=== PATIENT | male | born 1965 | race African-American/Black ===

== ENCOUNTER 2022-02-11 13:36 | Inpatient (IN) | payer OTHER ==
[~2022-02-11] VITALS: Ht 180.3 cm; Wt 90.7 kg
[~2022-02-11 13:36] MED LIST: BENZ2TAB27 PO; CLON2TAB PO; COL250 PO; DIVA500T1 PO; HAL5 PO; LOSA25TA32 PO; OLAN15TA1 PO; PROP20TA29 PO; TRAZ-343 PO
[2022-02-11 13:38] VITALS: BP 111/60
--- NOTE | 2022-02-11 14:39 | NUR ---
MOVED TO ER BED 9
[2022-02-11 15:11] LABS: BASOPHILS % (AUTO) 0.3 % (0.0-2.0); EOSINOPHILS % (AUTO) 0.4 % (0.0-4.0); HEMATOCRIT 38.1 % (36-52); HEMOGLOBIN 12.5 g/dL (12.0-18.0); LYMPHOCYTES % (AUTO) 18.7 % (20.5-51.1); MEAN CORPUSCULAR HEMOGLOBIN 29 pg (27-31); MEAN CORPUSCULAR HGB CONC 33 g/dL (33-37); MEAN CORPUSCULAR VOLUME 89.4 fL (80-94); MONOCYTES # (AUTO) 0.9 K/uL (0.8-1.0); MONOCYTES % (AUTO) 17.4 % (1.7-9.3); NEUTROPHILS # (AUTO) 3.3 K/uL (1.8-7.7); NEUTROPHILS % (AUTO) 63.2 % (42.2-75.2); PLATELET COUNT (AUTO) 100 K/uL (140-450); RED BLOOD CELL COUNT(AUTO) 4.26 MIL/uL (4.20-6.10); RED CELL DISTRIBUTION WIDTH 15.3 % (11.6-13.7); WHITE BLOOD COUNT (AUTO) 5.2 K/uL (4.8-10.8)
[2022-02-11 15:37] LABS: ALBUMIN 2.7 g/dL (3.4-5.0); ANION GAP 11.7 (8-16); ASPARTATE AMINOTRANSFERASE 34 U/L (15-37); CARBON DIOXIDE 33.4 mmol/L (21-32); CHLORIDE 103 mmol/L (98-107); CREATININE 2.2 mg/dL (0.6-1.3); GFR ARICAN-AMERICAN 40 mL/min (>90); GLUCOSE 128 mg/dL (74-106); POTASSIUM 4.1 mmol/L (3.5-5.1); SODIUM SERUM 144 mmol/L (136-145); TOTAL BILIRUBIN 0.3 mg/dL (0.0-1.0); UREA NITROGEN, BLOOD 26 mg/dL (7-18)
[2022-02-11 15:41] LABS: ACETAMINOPHEN < 0.5 ug/ml (10-30); SALICYLATE < 2.8 mg/dL (2.8-20.0)
[2022-02-11] MEDS ORDERED: NACL 0.9% 1,000 ML IV ONE (17:10)
[2022-02-11] MEDS ORDERED: ACETAMINOPHEN 325 MG TAB PO PRN (18:10)
[2022-02-11] MEDS ORDERED: ONDANSETRON 4 MG/2 ML VIAL IVP PRN (18:10)
[2022-02-11] MEDS ORDERED: HYDROcodone/APAP 5/325 MG 1 TAB TAB PO PRN (18:10)
--- NOTE | 2022-02-11 19:20 | NUR ---
Pt report given to ARPITA Brewer. Transfer of care at this time.
[2022-02-11] MEDS: NACL 0.9% 1,000 ML IV SCH (19:30)
--- NOTE | 2022-02-11 19:40 | NUR ---
Patient resting comfortably in bed, A/Ox4, chest rise and fall symmetrical, no c/o pain or s/s of distress.
--- NOTE | 2022-02-11 21:00 | NUR ---
Patient resting comfortably in bed, A/Ox4, chest rise and fall symmetrical, no c/o pain or s/s of distress.
--- NOTE | 2022-02-11 23:00 | NUR ---
Patient resting comfortably in bed, A/Ox4, chest rise and fall symmetrical, no c/o pain or s/s of distress.
--- NOTE | 2022-02-12 01:00 | NUR ---
Patient resting comfortably in bed, A/Ox4, chest rise and fall symmetrical, no c/o pain or s/s of distress.
--- NOTE | 2022-02-12 03:00 | NUR ---
Patient resting comfortably in bed, A/Ox4, chest rise and fall symmetrical, no c/o pain or s/s of distress.
[2022-02-12 03:57] LABS: APPEARANCE,URINE CLEAR (CLEAR); BILIRUBIN,URINE NEGATIVE (NEGATIVE); BLOOD, URINE NEGATIVE (NEGATIVE); COLOR,URINE YELLOW (YELLOW); LEUKOCYTE ESTERASE ,URINE NEGATIVE (NEGATIVE); NITRITE, URINE NEGATIVE (NEGATIVE); UGLUCOSE NEGATIVE (NEGATIVE)
--- NOTE | 2022-02-12 05:08 | NUR ---
Patient resting comfortably in bed, A/Ox4, chest rise and fall symmetrical, no c/o pain or s/s of distress.
--- NOTE | 2022-02-12 05:10 | NUR ---
Patient had a bowel movement, solid/brown, and patient urinated, yellow/clear.
--- NOTE | 2022-02-12 06:12 | NUR ---
Patient resting comfortably in bed, A/Ox4, chest rise and fall symmetrical, no c/o pain or s/s of distress.
[2022-02-12] MEDS: NACL 0.9% 1,000 ML IV SCH (06:43)
--- NOTE | 2022-02-12 07:03 | NUR ---
Patient resting comfortably in bed, A/Ox4, chest rise and fall symmetrical, no c/o pain or s/s of distress.
--- NOTE | 2022-02-12 07:36 | NUR ---
Change of shift report given to Marco PALM. Marco PALM verbalized understanding of report, no further questions.
[2022-02-12 07:41] LABS: BASOPHILS % (AUTO) 0.2 % (0.0-2.0); EOSINOPHILS % (AUTO) 0.8 % (0.0-4.0); HEMATOCRIT 36.1 % (36-52); HEMOGLOBIN 11.7 g/dL (12.0-18.0); LYMPHOCYTES # (AUTO) 1.6 K/uL (2.0-11.5); LYMPHOCYTES % (AUTO) 37.6 % (20.5-51.1); MEAN CORPUSCULAR HEMOGLOBIN 29 pg (27-31); MEAN CORPUSCULAR HGB CONC 33 g/dL (33-37); MEAN CORPUSCULAR VOLUME 88.8 fL (80-94); MONOCYTES # (AUTO) 0.7 K/uL (0.8-1.0); MONOCYTES % (AUTO) 16.7 % (1.7-9.3); NEUTROPHILS % (AUTO) 44.7 % (42.2-75.2); PLATELET COUNT (AUTO) 92 K/uL (140-450); RED BLOOD CELL COUNT(AUTO) 4.07 MIL/uL (4.20-6.10); RED CELL DISTRIBUTION WIDTH 15.1 % (11.6-13.7); WHITE BLOOD COUNT (AUTO) 4.4 K/uL (4.8-10.8)
[2022-02-12 08:51] LABS: ANION GAP 10.7 (8-16); CARBON DIOXIDE 32.2 mmol/L (21-32); CREATININE 1.4 mg/dL (0.6-1.3); POTASSIUM 3.9 mmol/L (3.5-5.1)
--- NOTE | 2022-02-12 08:59 | NUR ---
pts sister contact william- Roxanna- [phone].
[2022-02-12] MEDS: ENOXAPARIN 40 MG/0.4 ML SYR SUBQ SCH (10:26)
[2022-02-12] MEDS ORDERED: LOSARTAN 25 MG TAB PO SCH (10:30)
--- NOTE | 2022-02-12 10:41 | NUR ---
paged to discuss pt's upward trending BP.
--- NOTE | 2022-02-12 10:42 | NUR ---
returned paged. New orders placed.
[2022-02-12] MEDS: carvediloL 6.25 MG TAB PO SCH ×2 (10:43→21:00)
[2022-02-12] MEDS: NACL 0.45% 1,000 ML IV SCH (11:47)
[2022-02-12] MEDS ORDERED: hydrALAZINE 20 MG/ML VIAL IVP PRN (12:00)
--- NOTE | 2022-02-12 12:03 | NUR ---
Dr. Collier bedside. Verbal order for hydralazine PRN given.
--- NOTE | 2022-02-12 14:00 | NUR ---
DC PLANNING SW OUTREACHED TO PTS SISTER, JASON CASTELLANO, , TO GATHER COLLATERAL INFORMATION. MS. GOMEZ REPORTS PT RESIDES IN A SINGLE STORY HOME WITH HER AT THE ADDRESS LISTED ON FILE. 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 PT IS REPORTED TO MEET WITH PCP, DR. MILO DAHL REGULARLY, LAST VISIT; 2-2.5 MONTHS AGO. PT IS REPORTED TO BE MEDICATION COMPLIANT AND DENIES BARRIERS IN ACCESS TO NEEDED MEDICATIONS. PT MEDICATION ARE DELIVERED TO THE HOME BY [facility], WHEN NEEDED. PT IS REPORTED TO UTILIZE FWW AND BATH CHAIR AND REQUIRES SOME ASSISTANCE WITH ADL'S. PT IS REPORTED TO SMOKE CIGARETTES AND SMOKES 3 CIGARETTES A DAY DOWN FROM 6 IN THE PREVIOUS YEARS. MS. GOMEZ DENIES PT HAS HX OF DIABETES, DIALYSIS, SNF PLACEMENT. PT IS REPORTED TO HAVE RECEIVED HH IN JULY 28 WITH [facility] AND WAS RECEIVING PT AFTER EXPERIENCING A HEART ATTACK IN . DC PLAN IS FOR PT TO RETURN HOME W/ SISTER JASON PROVIDING TRANSPORTATION, WHEN PT IS MEDICALLY STABLE. SW INQUIRED ON RESOURCES NEEDED, FAMILY DECLINED AT THIS TIME. Addendum: 02/13/22 at 0857 by Franki RAMIREZ Amended: Links added.
--- NOTE | 2022-02-12 16:24 | NUR ---
PATIENT HAS BEEN SCREENED AND CATEGORIZED MODERATE NUTRITION RISK. PATIENT WILL BE SEEN WITHIN 3-5 DAYS OF ADMISSION. 02/15/[address]
[2022-02-12] MEDS: amLODIPine 5 MG TAB PO SCH (16:46)
[2022-02-12] MEDS: DIVALPROEX 500 MG TABER PO SCH (21:00)
--- NOTE | 2022-02-12 21:20 | NUR ---
REPORT CALL TO ARPITA NEUMANN. TRANSFER OF CARE.
--- NOTE | 2022-02-12 21:21 | NUR ---
Patient will be admitted to care of MD DIOP. Admited to TELEMETRY. Will go to room 116. Belongings list completed. Report to ARPITA NEUMANN.
[2022-02-12 21:28] VITALS: BP 160/94
--- NOTE | 2022-02-12 21:35 | NUR ---
PATIENT WAS RECEIVED FROM ED VIA GURNEY BUT WAS ABLE TO WALK TO BED WITHOUT ASSISTANCE. RECEIVED REPORT FROM RITA (AMMONIA NITRATE OPERATOR) AND ED STAFF. PATIENT WAS ALERT ORIENTED X 3. PATIENT WAS ABLE TO ANSWER MAJORITY OF THE INTAKE QUESTIONS BUT GO CONFUSED ON SPECIFIC DETAILS. PATIENT WAS ON ROOM AIR AND BREATHING WITHOUT DISTRESS. PATIENT HAD NO S/S OF FATIGUE, OR S/S OF COVID 19 BUT WAS NOTED POSITIVE. PATIENT IN AN ISOLATION ROOM. NO NOTED SKIN BREAKDOWN DURING ASSESSMENT. PATIENT DENIED PAIN REQUEST FOOD. NURSING GAVE. PATIENT WAS ABLE TO TAKE MEDICATION WITHOUT INCIDENT. NURSING GAVED EDUCATION TO THE CALL LIGHT, BED FUNCTIONS, AND IV ACCESS/IMPORTANCE. PATIENT WAS ABLE TO DEMONSTRATE HOW TO USE THE BED AND CALL LIGHT. SIDE RAILS UP X 2 CALL LIGHT WITHIN REACH. [email or web address]
[2022-02-13] VITALS: BP 129/85
[2022-02-13] MEDS: NACL 0.45% 1,000 ML IV SCH ×2 (00:10→12:40)
--- NOTE | 2022-02-13 00:39 | NUR ---
PATIENT WAS SLEEPING WITH HOB ELEVATED TO IMPROVE RESPIRATION. NO NOTED S/S OF PAIN/DISCOMFORT. NO NOTED RESPIRATORY DISTRESS. CALL LIGHT WITHIN REACH FOR ANY AND ALL ASSISTANCE. BED NOTED AT THE LOWEST LEVEL FOR SAFETY. [email or web address]
--- NOTE | 2022-02-13 01:29 | NUR ---
CIVIL ENGINEERING PROFESSOR HAS NOT SIGNAL ON PATIENT. NURSING NOTED PATIENT HAS REMOVED ALL HIS TELE MONITOR AND PULLED OUT HIS IV. PATIENT IS CONFUSED AND DECLINED FOR NURSING TO ACCESS ANOTHER IV LINE. PATIENT WANT TO BE LEFT ALONE AT THIS TIME. NURSING WILL ATTEMPT X ONE HOUR. [email or web address]
--- NOTE | 2022-02-13 03:15 | NUR ---
PATIENT WAS NOTED SLEEPING AND REQUESTED NURSING TO COME BACK LATER FOR IV INSERTION. PATIENT NOTED WITH BLOOD ALL OVER RIGHT ARM WERE HE TOOK THE IV OUT. NURSING WILL FOLLOW UP LATER PER PATIENT REQUEST. [email or web address]
[2022-02-13 04:00] VITALS: BP 140/93
--- NOTE | 2022-02-13 05:23 | NUR ---
PATIENT CONFUSED, URINATED ON THE FLOOR NOT IV ACCESS BECAUSE HE PULLED OUT IV. PATIENT WAS BATHED AND CHANGED INTO CLEAN HOSPITAL CLOTHING. PATIENT WAS A HARD STICK. COVER RN WAS INFORMED AND MD WAS NOTIFIED. AWAITING ADVISE. [email or web address]
[2022-02-13 07:27] LABS: ANION GAP 11.9 (8-16); BASOPHILS % (AUTO) 0.2 % (0.0-2.0); CARBON DIOXIDE 32.1 mmol/L (21-32); CREATININE 1.2 mg/dL (0.6-1.3); EOSINOPHILS % (AUTO) 0.8 % (0.0-4.0); HEMATOCRIT 38.4 % (36-52); HEMOGLOBIN 12.3 g/dL (12.0-18.0); LYMPHOCYTES # (AUTO) 1.2 K/uL (2.0-11.5); LYMPHOCYTES % (AUTO) 31.2 % (20.5-51.1); MEAN CORPUSCULAR HEMOGLOBIN 29 pg (27-31); MEAN CORPUSCULAR HGB CONC 32 g/dL (33-37); MEAN CORPUSCULAR VOLUME 88.9 fL (80-94); MONOCYTES # (AUTO) 0.6 K/uL (0.8-1.0); MONOCYTES % (AUTO) 15.9 % (1.7-9.3); NEUTROPHILS % (AUTO) 51.9 % (42.2-75.2); PLATELET COUNT (AUTO) 101 K/uL (140-450); RED BLOOD CELL COUNT(AUTO) 4.33 MIL/uL (4.20-6.10); RED CELL DISTRIBUTION WIDTH 14.8 % (11.6-13.7); WHITE BLOOD COUNT (AUTO) 3.9 K/uL (4.8-10.8)
--- NOTE | 2022-02-13 07:27 | NUR ---
ENDORSED PATIENT TO ORIN RN, PATIENT WAS STABLE DURING SHIFT REPORT. [email or web address]
[2022-02-13 08:00] VITALS: BP 159/103
[2022-02-13] MEDS: ENOXAPARIN 40 MG/0.4 ML SYR SUBQ SCH (09:00)
[2022-02-13] MEDS: amLODIPine 5 MG TAB PO SCH (09:49)
[2022-02-13] MEDS: carvediloL 6.25 MG TAB PO SCH ×2 (09:50→21:51)
[2022-02-13 12:00] VITALS: BP 152/99
[2022-02-13 16:00] VITALS: BP 143/88
--- NOTE | 2022-02-13 18:00 | NUR ---
INSERTED IV ON R A/C 22G. IV IS PATENT AND INTACT.
--- NOTE | 2022-02-13 19:30 | NUR ---
RECEIVED PT ENDORSEMENT FROM DAY SHIFT NURSE FOR CONTINUITY OF CARE. PT IS ON BED AWAKE, ALERT AND VERBALLY RESPONSIVE. PT NOTED MILDLY CONFUSED. PT CONSUMED 100% OF DINNER PREPARED. IV SALINE LOCK ON RIGHT AC 22 INTACT AND PATENT.
[2022-02-13 20:00] VITALS: BP 113/67
[2022-02-13] MEDS: DIVALPROEX 500 MG TABER PO SCH (21:52)
--- NOTE | 2022-02-13 22:00 | NUR ---
PT IS COOPERATIVE AND TOOK HIS NIGHT TIME PILLS. NO ALLERGY OR SIDE REACTION.
[2022-02-14] VITALS: BP 107/69
--- NOTE | 2022-02-14 00:30 | NUR ---
PT ASLEEP, NO SOB OR DISTRESS. PT IS ON ROOM AIR.
[2022-02-14] MEDS: NACL 0.45% 1,000 ML IV SCH (01:10)
[2022-02-14 04:00] VITALS: BP 150/90
--- NOTE | 2022-02-14 04:00 | NUR ---
PT IS SLEEPING WELL, COOPERATIVE WITH VITAL SIGNS TAKING.
[2022-02-14 07:25] LABS: BASOPHILS % (AUTO) 0.3 % (0.0-2.0); EOSINOPHILS # (AUTO) 0.1 K/uL (0-0.4); EOSINOPHILS % (AUTO) 2.1 % (0.0-4.0); HEMATOCRIT 38.1 % (36-52); HEMOGLOBIN 12.4 g/dL (12.0-18.0); LYMPHOCYTES # (AUTO) 1.7 K/uL (2.0-11.5); LYMPHOCYTES % (AUTO) 36.4 % (20.5-51.1); MEAN CORPUSCULAR HEMOGLOBIN 29 pg (27-31); MEAN CORPUSCULAR HGB CONC 33 g/dL (33-37); MEAN CORPUSCULAR VOLUME 88.7 fL (80-94); MONOCYTES # (AUTO) 0.5 K/uL (0.8-1.0); MONOCYTES % (AUTO) 11.1 % (1.7-9.3); NEUTROPHILS # (AUTO) 2.4 K/uL (1.8-7.7); NEUTROPHILS % (AUTO) 50.1 % (42.2-75.2); PLATELET COUNT (AUTO) 86 K/uL (140-450); WHITE BLOOD COUNT (AUTO) 4.7 K/uL (4.8-10.8)
--- NOTE | 2022-02-14 07:25 | NUR ---
PT IS ON STABLE CONDITION. ALL SAFETY MEASURES ARE IN PLACES. ENDORSED TO DAY SHIFT NURSE FOR CONTINUITY OF CARE.
[2022-02-14 07:26] LABS: ANION GAP 12.4 (8-16); CARBON DIOXIDE 31.3 mmol/L (21-32); CREATININE 1.1 mg/dL (0.6-1.3); POTASSIUM 3.7 mmol/L (3.5-5.1)
[2022-02-14 08:00] VITALS: BP 152/97
[2022-02-14] MEDS: ENOXAPARIN 40 MG/0.4 ML SYR SUBQ SCH (09:00)
[2022-02-14] MEDS: carvediloL 6.25 MG TAB PO SCH (09:17)
[2022-02-14] MEDS: amLODIPine 5 MG TAB PO SCH (09:17)
[2022-02-14] MEDS ORDERED: CARV6.252 PO (10:40)
[2022-02-14] MEDS ORDERED: AMLO-3 PO (10:40)
[2022-02-14 12:00] VITALS: BP 133/83
--- NOTE | 2022-02-14 14:30 | NUR ---
DISCHARGE TO HOME WITH TRANSPORT FROM SISTER, JASON, TO JASON'S HOUSE. PATIENT GIVEN A COPY OF DISCHARGE INSTRUCTION. INTACT 22 GAUGE IV CATHETER TIP OF NOTE REMOVAL FROM RIGHT ANTECUBITAL SPACE. IDENTIFICATION BRACELET REMOVAL. PATIENT AND FAMILY VERBALIZE UNDERSTANDING OF FOLLOW UP, MEDICATION RECONCILIATION AND TEACHING REGARDING HOSPITALIZATION. ENCOURAGEMENT TO STOP SMOKING PATIENT SISTER NOTES SHE HAS CUT THE HABIT DOWN TO 3 CIGARETTES DAILY, BUT IS NOT ABLE TO AGREE TO QUITTING AT THIS TIME.
== END 2022-02-14 14:30 | disposition home or self-care (01) | DRG 137 ==
LOC: MED 13:36 → MTU 18:12 → OBSVTOIN 18:12 → MTU 02-12 19:06
PROVIDERS: ADMIT Internal Medicine; ATTEND Internal Medicine
PROC: 4A00X4Z Measurement of Central Nervous Electrical Activity, External Approach (ICD-10-PCS; principal; 2022-02-13)
DX: U07.1 COVID-19 (principal); J12.82 Pneumonia due to coronavirus disease 2019; G93.41 Metabolic encephalopathy; N17.9 Acute kidney failure, unspecified; D69.6 Thrombocytopenia, unspecified; E87.0 Hyperosmolality and hypernatremia; E88.09 Other disorders of plasma-protein metabolism, not elsewhere classified; I42.9 Cardiomyopathy, unspecified; I50.20 Unspecified systolic (congestive) heart failure; I25.10 Atherosclerotic heart disease of native coronary artery without angina pectoris; F20.9 Schizophrenia, unspecified; I11.0 Hypertensive heart disease with heart failure; E86.0 Dehydration
CPT/HCPCS: 36415; 70450; 76770; 80048; 80053; 81003; 82140; 82550; 83735; 84484; 85025; 87081; 93005; 93880; 95816; 96360; 99285; G0480; G0482; J0360; J1650; J7030; Q0092